=== PATIENT | female | born 1945 | race Caucasian/White ===

== ENCOUNTER 2019-02-21 10:04 | Day surgery (SDC) | payer BC ==
[2019-02-21] MEDS ORDERED: ceFAZolin 2 GM/DEXTROSE 100 ML IV ONE (10:17)
[2019-02-21] MEDS ORDERED: LR 1,000 ML IV ONE (10:17)
[2019-02-21] MEDS ORDERED: ACETAMINOPHEN 500 MG TAB PO ONE (10:17)
[2019-02-21] MEDS ORDERED: GABAPENTIN 300 MG CAP PO ONE (10:17)
[2019-02-21] MEDS ORDERED: ONDANSETRON 4 MG/2 ML VIAL ONE (10:34)
[2019-02-21] MEDS ORDERED: DEXAMETHASONE 4 MG/ML VIAL ONE (10:34)
[2019-02-21] MEDS ORDERED: PROPOFOL 200 MG/20 ML VIAL ONE (10:34)
[2019-02-21] MEDS ORDERED: PROPOFOL/EMULSION 500 MG/50 ML BOTTLE IV ONE ×4 (10:34→14:38)
[2019-02-21] MEDS ORDERED: REMIFENTANIL HCL 1 MG VIAL ONE ×2 (10:34→12:39)
[2019-02-21] MEDS ORDERED: PHENYLEPHRINE 10 MG/ML SDV ONE (10:34)
[2019-02-21] MEDS ORDERED: LIDOCAINE 2% 100 MG/5 ML SYR ONE (10:34)
[2019-02-21] MEDS ORDERED: PHENYLEPHRINE HCL 100 MCG/ML SYR ONE (10:34)
[2019-02-21] MEDS ORDERED: SURGIFLO MATRIX KIT WITH THROMBIN 8 ML TP ONE ×2 (10:42→14:51)
[2019-02-21] MEDS ORDERED: BUPIVACAINE/EPI 0.25% 30 ML SDV ONE (10:43)
[2019-02-21] MEDS ORDERED: CHLORHEXIDINE GLUC HIBICLENS 118 ML BTL TP ONE (10:43)
[2019-02-21] MEDS ORDERED: AVITENE POWDER 1 GM JAR TP ONE ×2 (10:43→14:51)
[2019-02-21] MEDS ORDERED: THROMBIN (BOVINE) 20,000 UNIT SPRAY TP ONE (10:43)
[2019-02-21] MEDS ORDERED: BACITRACIN 50,000 UNITS/10 ML SYR IRR ONE ×2 (10:44→14:52)
--- NOTE | 2019-02-21 11:19 | PDHPUP ---
History & Physical Update H&P update statement: This history and physical update is based on an assessment of the patient which was completed after admission or registration (within 24 hours), but prior to the surgery/procedure. H&P update: H&P reviewed & patient examined, no change in patient's condition since H&P completed (Consents signed and site marked. All questions answered.)
--- NOTE | 2019-02-21 11:42 | PDANEPAE ---
ANE History of Present Illness spinal stenosis, here for L4-L5 laminectomy ANE Past Medical History - Cardiovascular History Hx Hypertension: No Hx Arrhythmias: No Hx Chest Pain: No Hx Coronary Artery / Peripheral Vascular Disease: No Hx CHF / Valvular Disease: No Hx Palpitations: No Cardiovascular History Comment: calcium seen in aorta on x-ray - Pulmonary History Hx COPD: No Hx Asthma/Reactive Airway Disease: No Hx Recent Upper Respiratory Infection: No Hx Oxygen in Use at Home: No Hx Sleep Apnea: Yes Sleep Apnea Screening Result - Last Documented: Negative - Neurologic History Hx Cerebrovascular Accident: No Hx Seizures: No Hx Dementia: No - Endocrine History Hx Diabetes: No - Renal History Hx Renal Disorders: No - Liver History Hx Hepatic Disorders: No - Neurological & Psychiatric Hx Hx Neurological and Psychiatric Disorders: Yes Neurological / Psychiatric History Comment: bottom right foot is numb - Cancer History Hx Cancer: No - Congenital Disorder History Hx Congenital Disorders: No - GI History Hx Gastrointestinal Disorders: No - Other Health History Other Health History: none - Chronic Pain History Chronic Pain: No - Surgical History Prior Surgeries: breast implant removal. breast implants 30yrs ago ANE Review of Systems Review of Systems: - Exercise capacity METS (RN): 4 METS ANE Patient History - Allergies Allergies/Adverse Reactions: No Known Allergies Allergy (Verified 02/07/19 20:52) - Home Medications Home Medications: Diclofenc [Zorvolex] 35mg 35 mg PO TID PRN 02/07/19 [Last Taken 02/19/19] Herbals/Supplements -Info Only 1 ea PO DAILY 02/07/19 [Last Taken 02/18/19] Multivitamins [Multivitamin (*)] 1 each PO DAILY 02/07/19 [Last Taken 1 Week Ago ~02/14/19] [place]-3 Fatty Acids [Fish Oil 1000 mg (*)] 1,000 mg PO DAILY 02/07/19 [Last Taken 1 Week Ago ~02/14/19] oxyCODONE HCL/ACETAMINOPHEN [Percocet 10-325 mg Tablet] 1 each PO Q5H PRN [Last Taken 02/21/19] - NPO status NPO Since - Liquids (Date): 02/21/19 NPO Since - Liquids (Time): 08:30 NPO Since - Solids (Date): 02/20/19 NPO Since - Solids (Time): 19:00 - Smoking Hx Smoking Status: Former smoker - Family Anes Hx Family Hx Anesthesia Complications: none ANE Labs/Vital Signs - Vital Signs Blood Pressure: 163/71 Heart Rate: 56 Respiratory Rate: 16 O2 Sat (%): 96 Height: 175.26 cm Weight: 79.379 kg ANE Physical Exam - Airway Neck exam: FROM Mallampati Score: Class 2 Mouth exam: normal dental/mouth exam - Pulmonary Pulmonary: no respiratory distress, no rales or rhonchi - Cardiovascular Cardiovascular: regular rate and rhythym, no murmur, rub, or gallop - ASA Status ASA Status: II ANE Anesthesia Plan Anesthesia Plan: general endotracheal anesthesia Total IV Anesthesia: Yes
[2019-02-21] MEDS ORDERED: MIDAZOLAM 2 MG/2 ML VIAL IVP ONE (11:43)
[2019-02-21] MEDS ORDERED: MIDAZOLAM 2 MG/2 ML VIAL ONE (11:45)
[2019-02-21] MEDS ORDERED: HYDROmorphONE/DILAUDID 2 MG/ML INJ ONE (14:53)
[2019-02-21] MEDS ORDERED: LR 500 ML IV PRN (15:02)
[2019-02-21] MEDS ORDERED: PHENYLEPHRINE HCL 100 MCG/ML SYR IVP PRN (15:02)
[2019-02-21] MEDS ORDERED: HYDROmorphONE/DILAUDID 1 MG/ML INJ IVP PRN (15:02)
[2019-02-21] MEDS ORDERED: MEPERIDINE 25 MG/0.5 ML AMP IVP PRN (15:02)
[2019-02-21] MEDS ORDERED: NALOXONE HCL 0.4 MG/ML INJ IVP PRN (15:02)
[2019-02-21] MEDS ORDERED: DIAZEPAM 5 MG/ML 1 ML SYR IVP PRN (15:02)
[2019-02-21] MEDS ORDERED: oxyCODONE IR 5 MG TAB PO PRN (15:02)
--- NOTE | 2019-02-21 15:32 | POSTANESTH ---
Post Anesthetic Evaluation Cardiovascular Status: Normal, Stable Respiratory Status: Normal, Stable Level of Consciousness/Mental Status: Can Participate in Eval, Mildly Sleepy, Arousable Pain Control: Adequate, Prn Tx Ordered Nausea/Vomiting Control: Adequate, Prn Tx Ordered Complications Possibly Related to Anesthesia: None Noted
[2019-02-21] MEDS ORDERED: fentaNYL 100 MCG/2 ML INJ ONE (15:56)
--- NOTE | 2019-02-21 15:57 | POSTOPPROG ---
Post Op Note Date of Operation: 02/21/19 Surgeon: Hernan Irizarry Boat Detailer: Anahy Nichole NP Anesthesiologist: Dr Lowe Anesthesia: GET(General Endotracheal) Pre-op Diagnosis: lumbar stenosis Post-op Diagnosis: lumbar stenosis Procedure: L4-5 lami with Limiflex device placement Inf/Abcess present in the surg proc area at time of surgery?: No Depth: Deep Incisional (Fascial) EBL: Minimal Total fluids administered: see anesthesia Complications: none Bowel Protocol: N/A Clean Closure Performed: N/A Date of Surgery: 02/21/19 Post Op Day: 0 Assessment/Plan: Assessment: 73 yr old F s/p L4-5 lami with Limiflex device placement Plan: Discharge home when criteria met Subjective: waking up in pacu Objective: waking up in pacu following commands MAEx4 5/5 BLE, BUE Sensation intact to light touch BLE Dressing CDI Appropriate Neuro Check Frequency Ordered: Yes
[2019-02-21] MEDS: fentaNYL 100 MCG/2 ML INJ IVP PRN ×2 (15:59→16:20)
--- NOTE | 2019-02-21 16:03 | GOP ---
[f rep st] OPERATIVE REPORT DATE OF OPERATION: 02/21/2019 SURGEON: Hernan Irizarry MD POMPOM MAKER: Anahy Nichole NP ANESTHESIA: General. PREOPERATIVE DIAGNOSIS: 1. L4-L5 grade 1 spondylolisthesis with bilateral lateral recess stenosis. 2. Lower extremity claudication. 3. Low back pain. 4. Treatment refractory to nonoperative intervention. POSTOPERATIVE DIAGNOSIS: 1. L4-L5 grade 1 spondylolisthesis with bilateral lateral recess stenosis. 2. Lower extremity claudication. 3. Low back pain. 4. Treatment refractory to nonoperative intervention. PROCEDURE PERFORMED: 1. Bilateral L4-L5 hemilaminotomy with mesial facetectomies and lateral recess decompression. 2. Placement of Limiflex trial device at L4/5. 3. Use of intraoperative fluoroscopy, less than 1-hour physician time. 4. Use of intraoperative neuromonitoring. 5. Use of operating microscope. FINDINGS: per imaging SPECIMENS: None. ESTIMATED BLOOD LOSS: 20 mL. INDICATION FOR PROCEDURE: The patient is a very pleasant woman who presented to our office with lower extremity claudication and radiculopathy. She had evidence of a grade 1 spondylolisthesis at L4-5 with lateral recess stenosis. After discussion of risks, benefits, and treatment alternatives, we decided to proceed forth with surgery as described above. DESCRIPTION OF PROCEDURE: Patient was brought to the operating theater and underwent general endotracheal anesthesia without complications. She had Venodynes, KATLIN hose, and the appropriate lines placed by Anesthesia. She was then flipped prone onto the Willis frame and all bony prominences inspected and padded. The lower lumbar region was prepped and draped in the usual sterile surgical fashion. A time-out was completed per protocol, and the patient received antibiotics within 1 hour of incision. Using lateral fluoroscopy and spinal needle, we picked our entry point at the L4 -5 level. This was marked in the midline. The incision was infiltrated with Marcaine with epinephrine. The incision was taken down initially with the scalpel blade. Using monopolar, the incision was taken down to the midline through the lumbodorsal fascia and a subperiosteal dissection carried out to the medial facet joints of L4-5. Deep retractors were placed to maintain our exposure. We again confirmed our level using lateral fluoroscopy. Localizing xray was confirmed with Radiology. The microscope was brought into the field to assist with microscopic dissection and to maintain illumination and magnification. Using a combination of the sbur tip on the drill bit and Kerrison punches, we completed bilateral L4-L5 hemilaminotomy with medial facetectomy and lateral recess decompressions. Once we felt the nerve roots were well decompressed on manual palpation and we confirmed the decompression on lateral fluoroscopy, we placed the Limiflex device around the spinous processes of L4 and L5. This was confirmed multiple times in both AP and lateral x-rays. We then tightened the device after placing the patient into lumbar lordosis by flattening out the Willis frame and placing pillows under her knees. The device was tightened and the ropes cut once the device was centered over the L4-5 spinous processes. We again confirmed final placement of the device using the AP and lateral fluoroscopic images. The wound was irrigated copiously with bacitracin irrigation and closed in multiple layers including Vicryl sutures for the deep layers and Dermabond for the skin. Patient's wounds were dressed sterilely. She was flipped supine onto the transfer cart. She was awakened, extubated, and taken to the recovery room in stable condition. There were no complications and no noted changes on neuromonitoring throughout the procedure. COMPLICATIONS: None. /[id number]/MODL MTDD
[2019-02-21] MEDS ORDERED: DIAZEPAM 5 MG/ML 1 ML SYR ONE (16:05)
[2019-02-21] MEDS ORDERED: HYDROmorphONE/DILAUDID 1 MG/ML INJ ONE (16:29)
[2019-02-21] MEDS ORDERED: oxyCODONE IR 5 MG TAB ONE (16:35)
[2019-02-21 17:16] VITALS: BP 136/58
== END 2019-02-21 17:14 | disposition home or self-care (01) ==
LOC: FSGY 10:04 → F3N 10:04 → UNDOADMOB 10:04 → EDSTATUS 12:15 → FSGY 17:14 → UNDODISOB 17:14
PROVIDERS: ATTEND Neurological Surgery
PROC: 0QH004Z Insertion of Internal Fixation Device into Lumbar Vertebra, Open Approach (ICD-10-PCS; principal; 2019-02-21 12:15)
PROC: 4A11X4G Monitoring of Peripheral Nervous Electrical Activity, Intraoperative, External Approach (ICD-10-PCS; principal; 2019-02-21 12:15)
PROC: 00NY0ZZ Release Lumbar Spinal Cord, Open Approach (ICD-10-PCS; principal; 2019-02-21 12:15)
PROC: 8E0WXBZ Computer Assisted Procedure of Trunk Region (ICD-10-PCS; principal; 2019-02-21 12:15)
DX: M48.062 Spinal stenosis, lumbar region with neurogenic claudication (principal); M43.16 Spondylolisthesis, lumbar region; M43.17 Spondylolisthesis, lumbosacral region
CPT/HCPCS: C1713; J0690; J1100; J1170; J2001; J2250; J2370; J2405; J2704; J3010; J3360

== ENCOUNTER → 2019-03-27 | Outpatient (CLI) | payer BC | LOC: FIMAGING 09:24 | PROVIDERS: ATTEND Nurse Practitioner | DX: Z47.89 Encounter for other orthopedic aftercare (principal); Z98.1 Arthrodesis status ==